=== PATIENT | female | born 1950 | race Caucasian/White ===

== ENCOUNTER → 2018-10-20 10:45 | Outpatient (CLI) | payer MEDICARE, SELFPAY ==
--- NOTE | 2018-10-20 10:53 | MRI_ITS ---
STUDY: MRI LUMBAR SPINE WITHOUT CONTRAST REASON FOR EXAM: Female, 67 years old. back and bilat leg pain for years, nki, no prev lumbar surg. TECHNIQUE: Standardized fat and water weighted pulse sequences were obtained in the sagittal and axial planes. COMPARISON: None FINDINGS: T12-L1: There is mild disc space narrowing and endplates spondylosis. There is a mild disc bulge without significant central canal or foraminal stenosis. There is mild depression at the superior endplate of L1 without edema. There is an exaggerated lumbar lordosis. There is no substantial scoliosis. Normal conus medullaris that terminates at the L1 L1-2: There is minimal disc space narrowing and endplate spondylosis. There is no significant disc herniation, central canal or foraminal stenosis. L2-3: There is minimal disc space narrowing and endplate spondylosis. There is no significant disc herniation, central canal or foraminal stenosis. L3-4: There is minimal disc space narrowing and endplate spondylosis. There is a mild disc bulge and facet arthropathy with mild central canal stenosis. There is minimal bilateral foraminal stenosis. L4-5: There is moderate disc space narrowing and endplates spondylosis. There is a moderate disc bulge and facet arthropathy with moderate central canal stenosis. There is mild bilateral foraminal stenosis. There is minimal grade 1 anterolisthesis. L5-S1: There is mild disc space narrowing and endplates spondylosis. There is mild disc bulge and facet arthropathy asymmetric to the left with moderate left foraminal stenosis. There is no significant central canal or right foraminal stenosis. Normal visualized sacral ala. Normal visualized paraspinous soft tissue structures. MRI/Spine Lumbar (Routine) IMPRESSION: L4/L5: Grade 1 anterolisthesis. Moderate central canal stenosis. L5/S1: Moderate left foraminal stenosis. Electronically Signed: Jose Kendrick MD at 13:29 EST Tel , Service support ,
== END ==
PROVIDERS: Family Provider Preventive Medicine Occupational Medicine; PCP Preventive Medicine Occupational Medicine; Referring Provider Anesthesiology Pain Medicine; Visit Provider Anesthesiology Pain Medicine
DX: M54.9 Dorsalgia, unspecified (principal); M79.606 Pain in leg, unspecified
CPT/HCPCS: 72148